=== PATIENT | male | born 1935 | race Caucasian/White ===

== ENCOUNTER → 2017-05-19 | Day surgery (SDC) | payer MEDICARE ==
[~2017-05-19] MED LIST: LACTATED RINGER'S 1000 ML IV; METOPROLOL TARTRATE 25 MG TAB PO; SODIUM CHLORID 0.9% 500 ML IV
[2017-05-19] MEDS: CHLORHEXIDINE GLUCONATE 2 % 1 PACK (2 CLOTHS) TOPICAL (07:50)
[2017-05-19 08:12] LABS: HEMATOCRIT 42.1 % (39.0-51.0); HEMOGLOBIN 13.5 GM/DL (13.0-17.0); MEAN CELL VOLUME 93.4 FL (80.0-100.0); MEAN CORPUSCULAR HEMOGLOBIN 29.9 PG (27.0-34.0); MEAN PLATELET VOLUME 7.9 FL (7.0-11.0); PLATELET COUNT 188 TH/MM3 (150-450); RED BLOOD COUNT 4.51 MIL/MM3 (4.50-5.90); RED CELL DISTRIBUTION WIDTH 13.1 % (11.6-17.2); REVIEW FLAG FINAL; WHITE BLOOD COUNT 6.4 TH/MM3 (4.0-11.0)
[2017-05-19] MEDS: POVIDONE IODINE 5% (ANTISEPSIS KIT) 4 APPLICATIONS EACH NARE (08:30)
[2017-05-19] MEDS: ceFAZolin 1,000 MG/NS 100 ML IV (09:08)
[2017-05-19] MEDS: LIDOCAINE HCL 2% 50 ML VIAL (09:34)
[2017-05-19] MEDS: BUPIVACAINE HCL PF 0.5% 30 ML VIAL (09:34)
[2017-05-19] MEDS: NEOMYCIN/POLYMYXIN 1 ML G.U. IRRIGANT (09:36)
== END | disposition home or self-care (01) ==
LOC: PHSDC 07:21
DX: G56.02 Carpal tunnel syndrome, left upper limb (principal); R94.31 Abnormal electrocardiogram [ECG] [EKG]
CPT/HCPCS: 01810; 36415; 85027; 93005